=== PATIENT | male | born 1995 | race African-American/Black ===

== ENCOUNTER 2018-01-12 09:17 | Emergency (ER) | payer BC ==
[~2018-01-12] VITALS: Ht 190.5 cm; Wt 86.2 kg
[2018-01-12] MEDS ORDERED: NKM (09:31)
[2018-01-12 09:49] VITALS: BP 153/96
[2018-01-12] MEDS ORDERED: Tetanus/Diptheria/Pertussis Vaccine 0.5ml Syr IM ONE (10:00)
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
[2018-01-12] MEDS ORDERED: IBUPROFEN600 MG ORAL (10:07)
[2018-01-12] MEDS ORDERED: CYCLOBENZAPRINE10 MG ORAL (10:07)
[2018-01-12 11:04] VITALS: BP 153/96
== END 2018-01-12 11:05 | disposition home or self-care (01) ==
LOC: EMR 10:05
DX: S60.512A Abrasion of left hand, initial encounter (principal); S60.511A Abrasion of right hand, initial encounter; S80.212A Abrasion, left knee, initial encounter; S80.211A Abrasion, right knee, initial encounter; Y04.2XXA Assault by strike against or bumped into by another person, initial encounter; Y92.511 Restaurant or cafe as the place of occurrence of the external cause; Z23 Encounter for immunization
CPT/HCPCS: 90471; 90715; 99283